=== PATIENT | male | born 1950 | race Caucasian/White ===

== ENCOUNTER → 2017-04-26 | Outpatient (CLI) | payer MEDICARE ==
[~2017-04-26] MED LIST: IBUP200C5 PO; LORA1TAB3 PO; TAMS-1 PO
== END | disposition home or self-care (01) ==
LOC: RAH 07:15
PROVIDERS: ATTEND Urology
DX: N20.0 Calculus of kidney (principal); K57.90 Diverticulosis of intestine, part unspecified, without perforation or abscess without bleeding
CPT/HCPCS: 74176

== ENCOUNTER 2017-06-05 07:51 | Emergency (ER) | payer MEDICARE ==
[2017-06-05 08:14] LABS: APPEARANCE,URINE TURBID (CLEAR); BILIRUBIN,URINE MODERATE (NEGATIVE); GLUCOSE, URINE (UA) NEGATIVE (NEGATIVE); KETONES,URINE 15 mg/dL (NEGATIVE); LEUKOCYTE ESTERASE ,URINE MODERATE (NEGATIVE); NITRATE,URINE POSITIVE (NEGATIVE); OCCULT BLOOD,URINE LARGE (NEGATIVE); PH,URINE 6.5 (5.0-8.0); PROTEIN,URINE >=300 (NEGATIVE)
[2017-06-05 08:20] LABS: BACTERIA,URINE Few /HPF (None Seen); COLOR,URINE RED (YELLOW); RBC,URINE TNTC /HPF (0-1); SQUAMOUS EPITHELIAL CELL,UR Rare /HPF (0-2)
[2017-06-05] MEDS ORDERED: SODIUM CHLORIDE 0.9% 1000ML 1,000 ML IV ONE (08:34)
[2017-06-05 08:51] LABS: BASOPHILS % (AUTO) 0.1 % (0.0-5.0); EOSINOPHILS % (AUTO) 2.1 % (0.0-8.0); HEMATOCRIT 42.9 % (42-54); LYMPHOCYTES % (AUTO) 8.9 % (21.0-51.0); MEAN CORPUSCULAR HEMOGLOBIN 30.6 pg (27.0-33.0); MEAN CORPUSCULAR HGB CONC 34.1 g/dL (32.0-36.0); MEAN CORPUSCULAR VOLUME 89.9 fL (79-99); MONOCYTES % (AUTO) 6.7 % (3.0-13.0); NEUTROPHILS % (AUTO) 82.2 % (40.0-77.0); PLATELET COUNT (AUTO) 338 K/uL (130-400); RED BLOOD CELL COUNT(AUTO) 4.78 MIL/uL (4.50-6.20); WHITE BLOOD COUNT (AUTO) 10.7 K/uL (4.8-10.8)
[2017-06-05 09:03] LABS: ALBUMIN 2.4 g/dL (3.5-5.0); BILIRUBIN,TOTAL 0.8 mg/dL (0.2-1.0); CREATININE 1.1 mg/dL (0.5-1.5); TOTAL PROTEIN, SERUM 6.5 g/dL (6.0-8.3)
[2017-06-05 09:22] LABS: POTASSIUM 2.5 mmol/L (3.5-5.1)
[2017-06-05] MEDS ORDERED: POTASSIUM BICARB/CIT AC 25 MEQ TABLET.EFF ONE (10:26)
[2017-06-05] MEDS ORDERED: CEFTRIAXONE SODIUM 1 GM ONE (11:38)
[2017-06-05] MEDS ORDERED: LEVOFLOXACIN 500 MG TABLET ONE (11:38)
[2017-06-05] MEDS ORDERED: PHENAZOPYRIDINE HCL 200 MG TABLET ONE (11:48)
== END 2017-06-05 12:13 | disposition home or self-care (01) ==
LOC: EDH 07:51
DX: E87.6 Hypokalemia (principal); R30.0 Dysuria; R35.0 Frequency of micturition; F10.10 Alcohol abuse, uncomplicated; Z87.442 Personal history of urinary calculi
CPT/HCPCS: 36415; 80053; 81001; 85025; 87088; 96361; 96374; 99285; J0696; J7030

== ENCOUNTER → 2017-06-12 | Outpatient (CLI) | payer MEDICARE ==
[~2017-06-12] MED LIST changes: +IOPAMIDOL-370 100 ML VIAL IV ONE
== END ==
LOC: RAH 08:32
PROVIDERS: ATTEND Family Medicine
DX: R33.9 Retention of urine, unspecified (principal); N20.0 Calculus of kidney
CPT/HCPCS: 74400; Q9967

== ENCOUNTER → 2018-04-10 | Outpatient (CLI) | payer MEDICARE ==
[~2018-04-10] MED LIST changes: -IOPAMIDOL-370 100 ML VIAL IV ONE
== END | disposition home or self-care (01) ==
LOC: RAH 09:26
PROVIDERS: ATTEND Family Medicine
DX: M25.572 Pain in left ankle and joints of left foot (principal)
CPT/HCPCS: 73600; 73630

== ENCOUNTER 2018-10-03 06:40 | Emergency (ER) | payer MEDICARE ==
[2018-10-03] MEDS ORDERED: SODIUM CHLORIDE 0.9% 1000ML 1,000 ML IV ONE (06:53)
[2018-10-03] MEDS ORDERED: ONDANSETRON HCL 4 MG/2 ML VIAL ONE (06:53)
[2018-10-03 07:11] LABS: BASOPHILS % (AUTO) 0.3 % (0.0-5.0); HEMATOCRIT 45.6 % (42-54); LYMPHOCYTES % (AUTO) 7.2 % (21.0-51.0); MEAN CORPUSCULAR HEMOGLOBIN 28.7 pg (27.0-33.0); MEAN CORPUSCULAR HGB CONC 33.3 g/dL (32.0-36.0); MEAN CORPUSCULAR VOLUME 86.2 fL (79-99); MONOCYTES % (AUTO) 3.2 % (3.0-13.0); NEUTROPHILS % (AUTO) 89.3 % (40.0-77.0); NUCLEATED RED BLOOD CELLS 0.1 % (0.0-0.19); PLATELET COUNT (AUTO) 315 K/uL (130-400); RED BLOOD CELL COUNT(AUTO) 5.29 MIL/uL (4.50-6.20); RED CELL DISTRIBUTION WIDTH 13.8 % (11.0-15.5); WHITE BLOOD COUNT (AUTO) 15.3 K/uL (4.8-10.8)
[2018-10-03 07:12] LABS: APPEARANCE,URINE Clear (CLEAR); BILIRUBIN,URINE Negative (NEGATIVE); COLOR,URINE Yellow (YELLOW); GLUCOSE, URINE (UA) Negative (NEGATIVE); KETONES,URINE 40 mg/dL (NEGATIVE); LEUKOCYTE ESTERASE ,URINE Trace (NEGATIVE); NITRATE,URINE Negative (NEGATIVE); OCCULT BLOOD,URINE Trace (NEGATIVE); PH,URINE 6.5 (5.0-8.0); PROTEIN,URINE POS 1+ mg/dL (NEGATIVE)
[2018-10-03] MEDS ORDERED: MORPHINE SULFATE 4 MG/1ML SYG ONE (07:13)
[2018-10-03] MEDS ORDERED: KETOROLAC TROMETHAMINE 30MG/ML ONE (07:13)
[2018-10-03 07:18] LABS: AMPHET/METH SCREEN,URINE NEGATIVE (NEGATIVE); BARBITURATE SCREEN, URINE NEGATIVE (NEGATIVE); BENZODIAZEPINES SCREEN,URINE NEGATIVE (NEGATIVE); CANNABINOID SCREEN,URINE POSITIVE (NEGATIVE); COCAINE SCREEN,URINE NEGATIVE (NEGATIVE); CREATININE 1.6 mg/dL (0.5-1.5); OPIATE SCREEN,URINE NEGATIVE (NEGATIVE); PHENCYCLIDINE SCREEN,URINE NEGATIVE (NEGATIVE); POTASSIUM 3.8 mmol/L (3.5-5.1)
[2018-10-03 07:24] LABS: ALBUMIN 3.7 g/dL (3.5-5.0); BILIRUBIN,TOTAL 0.8 mg/dL (0.2-1.0); TOTAL PROTEIN, SERUM 7.4 g/dL (6.0-8.3)
[2018-10-03 07:54] LABS: BACTERIA,URINE Few /HPF (None Seen); SQUAMOUS EPITHELIAL CELL,UR 0-2 /HPF (0-2)
[2018-10-03 08:45] LABS: MAGNESIUM 2.1 mg/dL (1.80-2.40)
== END 2018-10-03 09:27 | disposition home or self-care (01) ==
LOC: EDH 06:40
DX: N23 Unspecified renal colic (principal); N28.9 Disorder of kidney and ureter, unspecified; R11.2 Nausea with vomiting, unspecified; Z98.890 Other specified postprocedural states; Z87.442 Personal history of urinary calculi
CPT/HCPCS: 36415; 74176; 80053; 80305; 81001; 83690; 83735; 85025; 96361; 96374; 96375; 99285; J1885; J2405; J7030; J2270

== ENCOUNTER → 2022-02-15 | Outpatient (CLI) | payer MEDICARE | END | disposition home or self-care (01) | LOC: RAH 08:18 | PROVIDERS: ATTEND Urology | DX: N20.0 Calculus of kidney (principal) | CPT/HCPCS: 74018 ==

== ENCOUNTER → 2022-08-31 | Outpatient (CLI) | payer MEDICARE | END | disposition home or self-care (01) | LOC: RAH 07:30 | PROVIDERS: ATTEND Family Medicine | DX: I65.23 Occlusion and stenosis of bilateral carotid arteries (principal) | CPT/HCPCS: 93880 ==

== ENCOUNTER 2023-04-19 10:06 | Emergency (ER) | payer MEDICARE ==
[~2023-04-19] VITALS: Ht 175.3 cm; Wt 60.8 kg
[2023-04-19 10:11] VITALS: BP 128/76; PULSE 86; RESP 17; O2SAT 98
[2023-04-19 10:38] LABS: BASOPHILS # (AUTO) 0.02 K/uL (0.00-0.20); BASOPHILS % (AUTO) 0.3 % (0.0-5.0); EOSINOPHILS # (AUTO) 0.04 K/uL (0.00-0.70); EOSINOPHILS % (AUTO) 0.6 % (0.0-8.0); HEMATOCRIT 41.7 % (42-54); IMMATURE GRANULOCYTE ABSOLUTE 0.01 K/uL (0-1); LYMPHOCYTES # (AUTO) 1.5 K/uL (1.0-4.8); LYMPHOCYTES % (AUTO) 24.1 % (21.0-51.0); MEAN CORPUSCULAR HGB CONC 32.9 g/dL (32.0-36.0); MEAN CORPUSCULAR VOLUME 91.2 fL (79-99); MONOCYTES # (AUTO) 0.5 K/uL (0.1-1.0); MONOCYTES % (AUTO) 7.9 % (3.0-13.0); NEUTROPHILS # (AUTO) 4.2 K/uL (1.8-7.7); NEUTROPHILS % (AUTO) 66.9 % (40.0-77.0); PLATELET COUNT (AUTO) 282 K/uL (130-400); RED BLOOD CELL COUNT(AUTO) 4.57 MIL/uL (4.50-6.20); RED CELL DISTRIBUTION WIDTH 13.5 % (11.0-15.5); WHITE BLOOD COUNT (AUTO) 6.3 K/uL (4.8-10.8)
[2023-04-19 10:55] LABS: APPEARANCE,URINE CLEAR (CLEAR); BILIRUBIN,URINE 0.5 mg/dL (NEGATIVE); COLOR,URINE DARK-YELLOW (YELLOW); GLUCOSE, URINE (UA) NEGATIVE (NEGATIVE); KETONES,URINE NEGATIVE (NEGATIVE); LEUKOCYTE ESTERASE ,URINE NEGATIVE Leu/uL (NEGATIVE); NITRATE,URINE 1+ (NEGATIVE); OCCULT BLOOD,URINE NEGATIVE (NEGATIVE); PH,URINE 6.5 (5.0-8.0); PROTEIN,URINE 10 mg/dL (NEGATIVE); UROBILINOGEN,URINE 0.2 mg/dL (0.2-1.0)
[2023-04-19 10:57] LABS: ADD UA MICROSCOPIC YES
[2023-04-19 10:58] LABS: ALBUMIN 3.9 g/dL (3.5-5.0); BILIRUBIN,TOTAL 0.4 mg/dL (0.2-1.0); CREATININE 1.6 mg/dL (0.5-1.5); POTASSIUM 4.3 mmol/L (3.5-5.1); TOTAL PROTEIN, SERUM 7.4 g/dL (6.0-8.3)
[2023-04-19 11:15] LABS: BACTERIA,URINE RARE /HPF (None Seen); MUCUS,URINE RARE LPF (None Seen); OTHER CASTS, URINE 1 /LPF (None Seen); SQUAMOUS EPITHELIAL CELL,UR RARE /HPF (0-2)
[2023-04-19] MEDS: PHENAZOPYRIDINE HCL 200 MG TABLET PO ONE (12:41)
[2023-04-19] MEDS: CEFTRIAXONE 1G VIAL IVPB ONE (12:41)
[2023-04-19] MEDS ORDERED: CEPH500B PO (14:01)
[2023-04-19] MEDS: ONDANSETRON 4MG INJ IVP ONE (14:08)
[2023-04-19] MEDS: ONDANSETRON 4MG INJ ONE (14:13)
== END 2023-04-19 14:35 | disposition home or self-care (01) ==
LOC: EDH 10:06
DX: N39.0 Urinary tract infection, site not specified (principal); N20.0 Calculus of kidney; K57.30 Diverticulosis of large intestine without perforation or abscess without bleeding; R30.0 Dysuria
CPT/HCPCS: 99285; 74176; 96365; 96375; 80053; 85025; 87088; 81001; 36415; J0696; J2405

== ENCOUNTER 2023-05-12 07:42 | Day surgery (SDC) | payer MEDICARE ==
[2023-05-10 12:26] VITALS: BP 111/68; PULSE 70; RESP 18
[2023-05-10 12:39] LABS: BASOPHILS # (AUTO) 0.06 K/uL (0.00-0.20); BASOPHILS % (AUTO) 0.8 % (0.0-5.0); EOSINOPHILS # (AUTO) 0.08 K/uL (0.00-0.70); EOSINOPHILS % (AUTO) 1.1 % (0.0-8.0); HEMATOCRIT 41.8 % (42-54); IMMATURE GRANULOCYTE ABSOLUTE 0.02 K/uL (0-1); LYMPHOCYTES # (AUTO) 1.6 K/uL (1.0-4.8); LYMPHOCYTES % (AUTO) 21.3 % (21.0-51.0); MEAN CORPUSCULAR HEMOGLOBIN 29.7 pg (27.0-33.0); MEAN CORPUSCULAR HGB CONC 32.3 g/dL (32.0-36.0); MEAN CORPUSCULAR VOLUME 91.9 fL (79-99); MONOCYTES # (AUTO) 0.5 K/uL (0.1-1.0); MONOCYTES % (AUTO) 6.2 % (3.0-13.0); NEUTROPHILS # (AUTO) 5.2 K/uL (1.8-7.7); NEUTROPHILS % (AUTO) 70.3 % (40.0-77.0); PLATELET COUNT (AUTO) 304 K/uL (130-400); RED BLOOD CELL COUNT(AUTO) 4.55 MIL/uL (4.50-6.20); RED CELL DISTRIBUTION WIDTH 13.1 % (11.0-15.5); WHITE BLOOD COUNT (AUTO) 7.4 K/uL (4.8-10.8)
[2023-05-10 12:46] LABS: CREATININE 1.4 mg/dL (0.5-1.5); POTASSIUM 4.6 mmol/L (3.5-5.1)
[~2023-05-12] VITALS: Ht 175.3 cm; Wt 64.2 kg
[2023-05-12] VITALS (17 sets, daily range): BP systolic 123–149; BP diastolic 64–85; PULSE 59–71; RESP 14–20
[~2023-05-12 07:42] MED LIST changes: +ACET-3540 PO; +CEPH500B PO; +FINA5TAB41 PO; -IBUP200C5 PO; -LORA1TAB3 PO; +[UNRECOGNIZED DRUG - OTHER] PO
[2023-05-12] MEDS: GENTAMICIN 80 MG/NS 100 ML PB 100 ML IV ONE (09:20)
[2023-05-12] MEDS: LACTATED RINGERS 1000ML 1,000 ML IV ONE (09:20)
[2023-05-12] MEDS: CEFTRIAXONE 1G VIAL ONE (09:20)
[2023-05-12] MEDS ORDERED: FAMOTIDINE 20MG VIAL IV ONE (10:34)
[2023-05-12] MEDS ORDERED: GLYCOPYRROLATE 0.2 MG/ML 5 ML VIAL ONE (10:35)
[2023-05-12] MEDS ORDERED: LIDOCAINE PF 100MG/5ML (2%) SYRINGE 5ML ONE (10:35)
[2023-05-12] MEDS ORDERED: PROPOFOL 10 MG/ML 20ML VIAL IV ONE (10:36)
[2023-05-12] MEDS ORDERED: FENTANYL CITRATE PF 50 MCG/1 ML 2ML VIAL ONE (10:36)
[2023-05-12] MEDS ORDERED: ROCURONIUM BROMIDE 10MG/1ML 5ML VL ONE (10:36)
[2023-05-12] MEDS ORDERED: SUCCINYLCHOLINE CHLORIDE 20 MG/ML 10 ML VIAL ONE (10:36)
[2023-05-12] MEDS ORDERED: ONDANSETRON 4MG INJ ONE (10:49)
[2023-05-12] MEDS: CEFTRIAXONE 1G VIAL IVPB ONE (11:00)
[2023-05-12] MEDS ORDERED: FENTANYL CITRATE PF 50 MCG/1 ML 5ML AMP IV ONE (11:15)
[2023-05-12] MEDS ORDERED: NEOSTIGMINE METHYLSULFATE 1MG/ML IV ONE (11:43)
[2023-05-12] MEDS ORDERED: MEPERIDINE-PF 25 MG/ML SYG ONE (11:56)
[2023-05-12] MEDS: MEPERIDINE-PF 25 MG/ML SYG ONE (12:18)
[2023-05-14] MEDS ORDERED: ACET-66 PO (23:47)
[2023-05-14] MEDS ORDERED: CEPH500C2 PO (23:47)
[2023-05-14] MEDS ORDERED: FAMO-136 PO (23:47)
[2023-05-14] MEDS ORDERED: IBUP-1493 PO (23:47)
[2023-05-14] MEDS ORDERED: LACT1CAP81 PO (23:47)
[2023-05-16] MEDS ORDERED: FAMO20TA8 PO (15:25)
[2023-05-16] MEDS ORDERED: AMOX1TAB16 PO (15:25)
== END 2023-05-12 13:35 | disposition home or self-care (01) ==
LOC: DAH 07:42
PROVIDERS: ATTEND Urology
DX: N21.0 Calculus in bladder (principal); N40.0 Benign prostatic hyperplasia without lower urinary tract symptoms; N32.89 Other specified disorders of bladder; Z79.899 Other long term (current) drug therapy; Z79.01 Long term (current) use of anticoagulants; Z98.890 Other specified postprocedural states
CPT/HCPCS: 80048; 85025; 36415 ×2; 52318; 82360; A6260; A4663; J7120 ×2; A4354; C1758; J3490 ×3; J3010 ×2; J2001; J0696 ×2; J2704; J2405; J2710; J2175 ×2; J1580; A4315; A4358; A4215; A4223; A4222; A4221; A5113; A4495; A4600; J0330